=== PATIENT | male | born 1990 | race Caucasian/White ===

== ENCOUNTER 2025-03-14 17:20 | Emergency (ER) | payer BC ==
[2025-03-14] MEDS ORDERED: CEFAZOLIN 2 GM VIAL ONE (18:01)
[2025-03-14] MEDS ORDERED: Lidocaine 1% (PF) 30 ML VIAL ONE (18:07)
[2025-03-14] MEDS ORDERED: Hydrocodone-Acetamin 15 ML UDCUP ONE (20:51)
== END 2025-03-14 21:25 | disposition home or self-care (01) ==
LOC: CSHERS 17:20
DX: S68.113A Complete traumatic metacarpophalangeal amputation of left middle finger, initial encounter (principal); E78.5 Hyperlipidemia, unspecified; W31.2XXA Contact with powered woodworking and forming machines, initial encounter; Z23 Encounter for immunization; Z79.899 Other long term (current) drug therapy
CPT/HCPCS: 90471; 90715; 96374; 96375; J2003; J2272